=== PATIENT | male | born 1995 | race Caucasian/White ===

== ENCOUNTER → 2017-03-24 | Outpatient (CLI) | payer BC ==
--- NOTE | 2017-03-24 10:05 | XR ---
EXAMINATION TYPE: XR abdomen 2V DATE OF EXAM: 03/24/2017 CLINICAL DATA: 21-year-old male left lower quadrant pain, abnormal urine, [facility] COMPARISON: None FINDINGS: Lung bases are clear. No evidence for free intraperitoneal air. No dilated small bowel or air-fluid levels. Scattered air and stool seen throughout the colon extendi ng distally into the rectum. Moderate stool in the rectum. No suspicious calcifications identified. IMPRESSION: 1. Moderate stool in the rectum. 2.No evidence of bowel obstruction or free intraperitoneal air.
== END | disposition home or self-care (01) ==
LOC: RADXRYALE 09:38
PROVIDERS: ATTEND Physician Assistant Medical
DX: R10.31 Right lower quadrant pain (principal); R82.99 Other abnormal findings in urine
CPT/HCPCS: 74019